=== PATIENT | male | born 1960 | race American Indian/Alaskan Native ===

== ENCOUNTER 2018-03-23 07:13 | Day surgery (SDC) | payer OTHER ==
[2018-03-19 14:45] VITALS: BMI 41.0
--- NOTE | 2018-03-23 09:13 | CP.SDSHP ---
Same Day Surgery H & P - History Proposed Procedure: COLONSCOPY Pre-Op Diagnosis: SEE NOTES - Previous Medical/Surgical History Cardiac: Hypertension Endocrine/Metabolic: Diabetes Neuro: Backaches Misc: Other Pain: 2.Mild Pain - Allergies Allergies: Allergies No Known Allergies Allergy (Verified 03/19/18 14:45) - Physical Exam General Appearance: N Vital Signs: Vital Signs 03/23/18 07:53 Temperature 98.6 F Pulse Rate 80 Respiratory 20 Rate Blood Pressure 156/91 H O2 Sat by Pulse 99 Oximetry Mental Status: Alert & Oriented x3 Neuro: WNL Heart: Other Lungs: WNL GI: WNL - {Optional Preform as Required} Breast: WNL Abdomen: Other Rectal: WNL Integument: WNL : WNL Ortho: Other ENT: WNL - Impression Pt. Evaluated Today:Candidate for Anesthesia & Procedure: Yes - Date & Time Time: 09:13 Short Stay Discharge - Short Stay Discharge Admitting Diagnosis/Reason for Visit: COLON SCREENING Disposition: HOME/ ROUTINE Referrals: Kike Horton MD [Primary Care Provider] -
[2018-03-23] MEDS ORDERED: Propofol 10 mg/ml Inj (20 ML) ONE ×2 (09:20→09:21)
[2018-03-23] MEDS ORDERED: Midazolam 2 MG/2 ML VIAL ONE (09:21)
[2018-03-23] MEDS ORDERED: Belladonna-Phenobarbital PO ONE (10:15)
[2018-03-23 11:16] VITALS: TEMP 97; O2SAT 100
[2018-03-23 11:19] VITALS: RESP 20
[2018-03-23 11:37] VITALS: BP 135/82; PULSE 85
== END 2018-03-23 11:30 | disposition home or self-care (01) ==
LOC: C.ENDO 07:13
PROVIDERS: ATTEND Specialist
DX: Z12.11 Encounter for screening for malignant neoplasm of colon (principal); K62.1 Rectal polyp
CPT/HCPCS: 45378; 82948; J2250; J2704

== ENCOUNTER 2018-04-13 07:53 | Day surgery (SDC) | payer OTHER ==
[2018-03-19 14:45] VITALS: BMI 41.0
[2018-04-13 08:45] VITALS: TEMP 97.8
[2018-04-13] MEDS ORDERED: Propofol 10 mg/ml Inj (20 ML) ONE ×2 (11:04)
--- NOTE | 2018-04-13 11:04 | CP.SDSHP ---
Same Day Surgery H & P - History Proposed Procedure: COLONSCOPY Pre-Op Diagnosis: SEE NOTES - Previous Medical/Surgical History Cardiac: Hypertension Endocrine/Metabolic: Other Neuro: Other Misc: Other Pain: 2.Mild Pain - Allergies Allergies: Allergies No Known Allergies Allergy (Verified 03/19/18 14:45) - Physical Exam General Appearance: N Vital Signs: Vital Signs 04/13/18 08:34 Temperature 97.8 F Pulse Rate 80 Respiratory 20 Rate Blood Pressure 151/92 H O2 Sat by Pulse 100 Oximetry Mental Status: Alert & Oriented x3 Neuro: WNL Heart: Other Lungs: WNL GI: Other - {Optional Preform as Required} Breast: WNL Abdomen: Other Rectal: Other Integument: WNL : WNL Ortho: WNL ENT: WNL - Impression Pt. Evaluated Today:Candidate for Anesthesia & Procedure: Yes - Date & Time Time: 11:03 Short Stay Discharge - Short Stay Discharge Admitting Diagnosis/Reason for Visit: COLON SCREENING Disposition: HOME/ ROUTINE Referrals: Kike Horton MD [Primary Care Provider] -
[2018-04-13] MEDS ORDERED: Belladonna-Phenobarbital PO STA (11:13)
[2018-04-13 11:47] VITALS: O2SAT 100
[2018-04-13 12:13] VITALS: BP 119/73; PULSE 71
[2018-04-13 13:01] VITALS: RESP 18
== END 2018-04-13 12:56 | disposition home or self-care (01) ==
LOC: C.ENDO 07:53
PROVIDERS: ATTEND Specialist
DX: Z12.11 Encounter for screening for malignant neoplasm of colon (principal); K57.30 Diverticulosis of large intestine without perforation or abscess without bleeding; K64.8 Other hemorrhoids
CPT/HCPCS: 45384; 82948; 88305; J2704